=== PATIENT | female | born 1985 | race African-American/Black ===

== ENCOUNTER 2020-10-27 11:49 | Inpatient (IN) | payer OTHER ==
[2020-10-27 13:18] VITALS: BMI 22.9
[2020-10-27] MEDS ORDERED: MAGNESIUM HYDROX 2400MG/30ML ORAL SUSPENSION 30 ML CUP PO PRN (15:18)
[2020-10-27] MEDS ORDERED: NICOTINE POLACRILEX 2 MG GUM BC PRN (15:18)
[2020-10-27] MEDS ORDERED: MAG HYDROX/AL HYDROX/SIMETH 30 ML UNIT-DOSE CUP PO PRN (15:18)
[2020-10-27] MEDS ORDERED: LOPERAMIDE HCL 2 MG CAPSULE PO PRN (15:18)
[2020-10-27] MEDS ORDERED: ACETAMINOPHEN 325 MG TABLET (FP) PO PRN (15:18)
[2020-10-27] MEDS ORDERED: IBUPROFEN 400 MG TABLET (FP) PO PRN (15:18)
[2020-10-27] MEDS ORDERED: P-EPHED 60MG/TRIPROLIDI 2.5MG TABLET PO PRN (15:18)
[2020-10-27] MEDS ORDERED: guaiFENesin 200 MG/10 ML 10 ML UNIT-DOSE CUPS PO PRN (15:18)
[2020-10-27] MEDS ORDERED: MAGNESIUM CITRATE 300 ML BOTTLE PO PRN (15:18)
[2020-10-27 16:57] LABS: HEMATOCRIT 41.4 % (32.4-45.2); HEMOGLOBIN 13.3 GM/dL (10.7-15.3); MCH 24.9 pg (25.7-33.7); MCHC 32.2 g/dl (32.0-36.0); MEAN CELL VOLUME 77.2 fl (80-96); MEAN PLT VOLUME 8.6 fl (7.5-11.1); PLATELET COUNT 324 K/MM3 (134-434); RBC 5.36 M/mm3 (3.60-5.2); RDW 14.6 % (11.6-15.6); WHITE BLOOD COUNT 6.4 K/mm3 (4.0-10.0)
[2020-10-27 17:02] LABS: CALCIUM 8.9 mg/dL (8.5-10.1)
[2020-10-27 17:03] LABS: ALBUMIN 3.5 g/dl (3.4-5.0); BLOOD UREA NITROGEN 17.3 mg/dL (7-18)
[2020-10-27 17:05] LABS: CREATININE 1.2 mg/dL (0.55-1.3)
[2020-10-27 17:07] LABS: BILIRUBIN,TOTAL 0.4 mg/dL (0.2-1); TOT PROT 6.8 g/dl (6.4-8.2)
[2020-10-27] MEDS: NICOTINE 7 MG/24 HOURS TOPICAL PATCH TD SCH (18:20)
[2020-10-27] MEDS: hydrOXYzine PAMOATE 25 MG CAPSULE (FP) PO SCH ×2 (18:22→21:29)
[2020-10-27] MEDS: PRENATAL VITAMINS W/ FOLIC ACID TABLET (FP) PO SCH (18:22)
[2020-10-27] MEDS: THIAMINE HCL 100 MG TABLET (FP) PO SCH (21:29)
[2020-10-27] MEDS: MELATONIN 5 MG TABLETS PO SCH (21:29)
[2020-10-28] MEDS: hydrOXYzine PAMOATE 25 MG CAPSULE (FP) PO SCH ×2 (06:37→10:16)
[2020-10-28] MEDS: PRENATAL VITAMINS W/ FOLIC ACID TABLET (FP) PO SCH (10:16)
[2020-10-28] MEDS: NICOTINE 7 MG/24 HOURS TOPICAL PATCH TD SCH (10:17)
[2020-10-28 15:58] LABS: HIV INTERPRETATION NEGATIVE (NEGATIVE)
[2020-10-28 17:33] LABS: EPI CELLS >36 /uL (0-25.1); HYALINE CASTS 1 /uL (0-3.1); PH,URINE 6.5 (5.0-8.0); URINE APPEARANCE CLOUDY; URINE BACTERIA 7201 /uL (0-1359); URINE BILIRUBIN NEGATIVE (NEGATIVE); URINE COLOR YELLOW; URINE GLUCOSE (UA) NEGATIVE (NEGATIVE); URINE KETONE NEGATIVE (NEGATIVE); URINE LEUK ESTERASE 2+ (NEGATIVE); URINE NITRITE NEGATIVE (NEGATIVE); URINE PROTEIN NEGATIVE (NEGATIVE); URINE RBC 1 /uL (0-23.9); URINE UROBILINOGEN 0.2 mg/dL (0.2-1.0); URINE WBC 60 /uL (0-25.8)
[2020-10-28] MEDS: hydrOXYzine PAMOATE 25 MG CAPSULE (FP) PO PRN (21:44)
[2020-10-28] MEDS: MELATONIN 5 MG TABLETS PO SCH (21:44)
[2020-10-28] MEDS: THIAMINE HCL 100 MG TABLET (FP) PO SCH (21:44)
[2020-10-29] MEDS: PRENATAL VITAMINS W/ FOLIC ACID TABLET (FP) PO SCH (10:12)
[2020-10-29] MEDS: NICOTINE 7 MG/24 HOURS TOPICAL PATCH TD SCH (10:13)
[2020-10-29] MEDS: hydrOXYzine PAMOATE 25 MG CAPSULE (FP) PO PRN ×2 (10:13→21:33)
[2020-10-29] MEDS: MELATONIN 5 MG TABLETS PO SCH (21:30)
[2020-10-29] MEDS: THIAMINE HCL 100 MG TABLET (FP) PO SCH (21:30)
[2020-10-30] MEDS: NICOTINE 7 MG/24 HOURS TOPICAL PATCH TD SCH (10:25)
[2020-10-30] MEDS: PRENATAL VITAMINS W/ FOLIC ACID TABLET (FP) PO SCH (10:25)
[2020-10-30] MEDS ORDERED: MASKS NR ONE (18:52)
[2020-10-30] MEDS: hydrOXYzine PAMOATE 25 MG CAPSULE (FP) PO PRN (21:26)
[2020-10-30] MEDS: THIAMINE HCL 100 MG TABLET (FP) PO SCH (21:27)
[2020-10-30] MEDS: MELATONIN 5 MG TABLETS PO SCH (21:27)
[2020-10-31] MEDS: NICOTINE 7 MG/24 HOURS TOPICAL PATCH TD SCH (10:41)
[2020-10-31] MEDS: PRENATAL VITAMINS W/ FOLIC ACID TABLET (FP) PO SCH (10:41)
[2020-10-31] MEDS: hydrOXYzine PAMOATE 25 MG CAPSULE (FP) PO PRN ×2 (10:42→21:29)
[2020-10-31] MEDS: MELATONIN 5 MG TABLETS PO SCH (21:29)
[2020-10-31] MEDS: THIAMINE HCL 100 MG TABLET (FP) PO SCH (21:29)
[2020-11-01] MEDS: NICOTINE 7 MG/24 HOURS TOPICAL PATCH TD SCH (10:00)
[2020-11-01] MEDS: hydrOXYzine PAMOATE 25 MG CAPSULE (FP) PO PRN ×2 (10:00→21:29)
[2020-11-01] MEDS: PRENATAL VITAMINS W/ FOLIC ACID TABLET (FP) PO SCH (10:00)
[2020-11-01] MEDS ORDERED: metroNIDAZOLE 250 MG TABLET PO ONE (11:00)
[2020-11-01] MEDS: metroNIDAZOLE 250 MG TABLET PO SCH (17:30)
[2020-11-01] MEDS: THIAMINE HCL 100 MG TABLET (FP) PO SCH (21:29)
[2020-11-01] MEDS: MELATONIN 5 MG TABLETS PO SCH (21:29)
[2020-11-02] MEDS: PRENATAL VITAMINS W/ FOLIC ACID TABLET (FP) PO SCH (09:55)
[2020-11-02] MEDS: metroNIDAZOLE 250 MG TABLET PO SCH ×2 (09:56→16:38)
[2020-11-02] MEDS: hydrOXYzine PAMOATE 25 MG CAPSULE (FP) PO PRN ×2 (09:56→21:38)
[2020-11-02] MEDS: NICOTINE 7 MG/24 HOURS TOPICAL PATCH TD SCH (09:56)
[2020-11-02] MEDS ORDERED: PT OWN MED DRAWER 7, Y5N ONE (16:25)
[2020-11-02] MEDS: MELATONIN 5 MG TABLETS PO SCH (21:37)
[2020-11-02] MEDS: THIAMINE HCL 100 MG TABLET (FP) PO SCH (21:37)
[2020-11-03] MEDS ORDERED: PT OWN MED DRAWER 7, Y5N ONE ×4 (05:48→16:53)
[2020-11-03] MEDS: metroNIDAZOLE 250 MG TABLET PO SCH ×2 (07:58→17:38)
[2020-11-03] MEDS: hydrOXYzine PAMOATE 25 MG CAPSULE (FP) PO PRN ×2 (10:15→21:19)
[2020-11-03] MEDS: NICOTINE 7 MG/24 HOURS TOPICAL PATCH TD SCH (10:15)
[2020-11-03] MEDS: PRENATAL VITAMINS W/ FOLIC ACID TABLET (FP) PO SCH (10:15)
[2020-11-03] MEDS: MELATONIN 5 MG TABLETS PO SCH (21:19)
[2020-11-03] MEDS: THIAMINE HCL 100 MG TABLET (FP) PO SCH (21:19)
[2020-11-04] MEDS: metroNIDAZOLE 250 MG TABLET PO SCH ×2 (07:46→17:43)
[2020-11-04] MEDS: NICOTINE 7 MG/24 HOURS TOPICAL PATCH TD SCH (10:10)
[2020-11-04] MEDS: PRENATAL VITAMINS W/ FOLIC ACID TABLET (FP) PO SCH (10:10)
[2020-11-04] MEDS: hydrOXYzine PAMOATE 25 MG CAPSULE (FP) PO PRN ×2 (10:11→21:49)
[2020-11-04] MEDS: THIAMINE HCL 100 MG TABLET (FP) PO SCH (21:49)
[2020-11-04] MEDS: MELATONIN 5 MG TABLETS PO SCH (21:49)
[2020-11-05] MEDS: hydrOXYzine PAMOATE 25 MG CAPSULE (FP) PO PRN ×2 (10:32→21:18)
[2020-11-05] MEDS: metroNIDAZOLE 250 MG TABLET PO SCH ×2 (10:32→17:24)
[2020-11-05] MEDS: PRENATAL VITAMINS W/ FOLIC ACID TABLET (FP) PO SCH (10:32)
[2020-11-05] MEDS: NICOTINE 7 MG/24 HOURS TOPICAL PATCH TD SCH (10:33)
[2020-11-05] MEDS ORDERED: PT OWN MED DRAWER 7, Y5N ONE (17:25)
[2020-11-05] MEDS: MELATONIN 5 MG TABLETS PO SCH (21:18)
[2020-11-05] MEDS: THIAMINE HCL 100 MG TABLET (FP) PO SCH (21:18)
[2020-11-05] MEDS: BACITRACIN 0.9 GM PACKET TP SCH (22:45)
[2020-11-06] MEDS ORDERED: PT OWN MED DRAWER 7, Y5N ONE ×3 (05:11→17:41)
[2020-11-06] MEDS: metroNIDAZOLE 250 MG TABLET PO SCH ×2 (07:02→18:10)
[2020-11-06] MEDS: BACITRACIN 0.9 GM PACKET TP SCH ×2 (10:25→21:38)
[2020-11-06] MEDS: PRENATAL VITAMINS W/ FOLIC ACID TABLET (FP) PO SCH (10:26)
[2020-11-06] MEDS: NICOTINE 7 MG/24 HOURS TOPICAL PATCH TD SCH (10:26)
[2020-11-06] MEDS: hydrOXYzine PAMOATE 25 MG CAPSULE (FP) PO PRN ×2 (10:27→21:36)
[2020-11-06] MEDS ORDERED: FLUCONAZOLE 150 MG TABLET PO ONE (12:19)
[2020-11-06] MEDS: MELATONIN 5 MG TABLETS PO SCH (21:36)
[2020-11-06] MEDS: THIAMINE HCL 100 MG TABLET (FP) PO SCH (21:36)
[2020-11-07] MEDS: metroNIDAZOLE 250 MG TABLET PO SCH ×2 (08:01→17:28)
[2020-11-07] MEDS ORDERED: PT OWN MED DRAWER 7, Y5N ONE ×2 (08:42→17:09)
[2020-11-07] MEDS: PRENATAL VITAMINS W/ FOLIC ACID TABLET (FP) PO SCH (09:51)
[2020-11-07] MEDS: BACITRACIN 0.9 GM PACKET TP SCH ×2 (09:51→21:26)
[2020-11-07] MEDS: hydrOXYzine PAMOATE 25 MG CAPSULE (FP) PO PRN ×2 (09:52→21:27)
[2020-11-07] MEDS: NICOTINE 7 MG/24 HOURS TOPICAL PATCH TD SCH (09:52)
[2020-11-07] MEDS: MELATONIN 5 MG TABLETS PO SCH (21:26)
[2020-11-07] MEDS: THIAMINE HCL 100 MG TABLET (FP) PO SCH (21:26)
[2020-11-07] MEDS ORDERED: MICONAZOLE NITRATE 2% VAGINAL CREAM 45 GM TUBE VG SCH (22:00)
[2020-11-08] MEDS: hydrOXYzine PAMOATE 25 MG CAPSULE (FP) PO PRN ×2 (10:05→21:57)
[2020-11-08] MEDS: PRENATAL VITAMINS W/ FOLIC ACID TABLET (FP) PO SCH (10:05)
[2020-11-08] MEDS: NICOTINE 7 MG/24 HOURS TOPICAL PATCH TD SCH (10:05)
[2020-11-08] MEDS: BACITRACIN 0.9 GM PACKET TP SCH ×2 (10:05→21:55)
[2020-11-08] MEDS: MELATONIN 5 MG TABLETS PO SCH (21:54)
[2020-11-08] MEDS: THIAMINE HCL 100 MG TABLET (FP) PO SCH (21:55)
[2020-11-08] MEDS: MICONAZOLE NITRATE 14 GM/TUBE TUBE TP SCH (21:55)
[2020-11-09 06:50] VITALS: BP 118/85; PULSE 85; TEMP 97.7
[2020-11-09] MEDS ORDERED: MASKS NR ONE (07:07)
[2020-11-09] MEDS: PRENATAL VITAMINS W/ FOLIC ACID TABLET (FP) PO SCH (09:47)
[2020-11-09] MEDS: BACITRACIN 0.9 GM PACKET TP SCH (09:47)
[2020-11-09] MEDS: MICONAZOLE NITRATE 14 GM/TUBE TUBE TP SCH (09:47)
[2020-11-09] MEDS: NICOTINE 7 MG/24 HOURS TOPICAL PATCH TD SCH (09:47)
[2020-11-09] MEDS: hydrOXYzine PAMOATE 25 MG CAPSULE (FP) PO PRN (09:49)
== END 2020-11-09 09:55 | disposition other institution (70) | DRG 772 ==
LOC: YASAS 11:49 → Y5N 15:23
PROVIDERS: ADMIT Allergy & Immunology; ATTEND Allergy & Immunology
PROC: HZ42ZZZ Group Counseling for Substance Abuse Treatment, Cognitive-Behavioral (ICD-10-PCS; principal; 2020-10-27)
DX: F10.20 Alcohol dependence, uncomplicated (principal); F14.20 Cocaine dependence, uncomplicated; F12.20 Cannabis dependence, uncomplicated; F17.210 Nicotine dependence, cigarettes, uncomplicated; A59.01 Trichomonal vulvovaginitis; S50.812A Abrasion of left forearm, initial encounter; Y04.2XXA Assault by strike against or bumped into by another person, initial encounter; Y93.89 Activity, other specified; Y92.238 Other place in hospital as the place of occurrence of the external cause; Z59.0 Homelessness
CPT/HCPCS: 36415; 80053; 81003; 85027; 86780; 87389; 87491; 87591; 87661; C9803; U0003; U0005